=== PATIENT | female | born 1950 | race Caucasian/White ===

== ENCOUNTER → 2020-02-28 | Outpatient (CLI) | payer MEDICARE ==
[~2020-02-28] MED LIST: OMNIPAQUE 350 MG/ML, 100ML BOTTLE ONE
== END | disposition home or self-care (01) ==
LOC: CVU 09:40
PROVIDERS: ATTEND Internal Medicine Cardiovascular Disease
DX: Z01.810 Encounter for preprocedural cardiovascular examination (principal); I35.0 Nonrheumatic aortic (valve) stenosis; R06.02 Shortness of breath; I70.0 Atherosclerosis of aorta; I21.29 ST elevation (STEMI) myocardial infarction involving other sites; I65.23 Occlusion and stenosis of bilateral carotid arteries
CPT/HCPCS: 71275; 74174; 93880; Q9967

== ENCOUNTER → 2020-04-09 | Outpatient (CLI) | payer MEDICARE ==
[~2020-04-09] MED LIST changes: +ASPI81TA45 PO; +BUPR150T22 PO; +MULT1TAB57 PO; -OMNIPAQUE 350 MG/ML, 100ML BOTTLE ONE; +PROP10TA16 PO
== END | disposition home or self-care (01) ==
LOC: CVU 12:45
PROVIDERS: ATTEND Internal Medicine Cardiovascular Disease
DX: Z01.810 Encounter for preprocedural cardiovascular examination (principal); I65.29 Occlusion and stenosis of unspecified carotid artery; I31.3 Pericardial effusion (noninflammatory); Z95.4 Presence of other heart-valve replacement
CPT/HCPCS: 93306; 93356